=== PATIENT | male | born 1970 | race Caucasian/White ===

== ENCOUNTER 2021-07-04 08:59 | Day surgery (SDC) | payer MEDICARE ==
[2021-07-04] MEDS ORDERED: Decadron 4 MG INJ IV ONE (09:00)
[2021-07-04] MEDS ORDERED: Xylocaine 1% Vial 30 ML PF IJ ONE (09:00)
[2021-07-04] MEDS ORDERED: Versed 2 MG/2 ML Injection ONE (09:37)
[2021-07-04] MEDS ORDERED: Lactated Ringers 1,000 ML IV ONE (10:54)
[2021-07-04] MEDS ORDERED: DIPRIVAN 200 MG/20 ML IV ONE (11:08)
--- NOTE | 2021-07-04 12:44 | XRAY ---
Indication: Left C2-C4 MBB. Intraoperative fluoroscopy provided for 20 seconds. 2 digital spot images submitted for interpretation demonstrates posterior needle tips projecting over the expected left C2-C4 nerve roots. Correlate with intraoperative findings/report.
--- NOTE | 2021-07-04 12:46 | XRAY ---
20 seconds fluoroscopy time in surgery for left C2-C4 MBB.
== END 2021-07-04 11:49 | disposition home or self-care (01) ==
LOC: SDC-PAIN 08:59
PROVIDERS: ATTEND Psychiatry & Neurology Pain Medicine
DX: M47.812 Spondylosis without myelopathy or radiculopathy, cervical region (principal); I10 Essential (primary) hypertension; Z79.899 Other long term (current) drug therapy
CPT/HCPCS: 64490; 64491; 72040; 77002; J1100; J2001; J2250; J2704

== ENCOUNTER 2021-07-19 06:45 | Day surgery (SDC) | payer MEDICARE ==
[2021-07-19] MEDS ORDERED: Xylocaine 1% Vial 30 ML PF IJ ONE (06:46)
[2021-07-19] MEDS ORDERED: Versed 2 MG/2 ML Injection ONE (07:44)
[2021-07-19] MEDS ORDERED: DIPRIVAN 200 MG/20 ML IV ONE (08:43)
[2021-07-19] MEDS ORDERED: Lactated Ringers 1,000 ML IV ONE (09:01)
--- NOTE | 2021-07-19 10:10 | XRAY ---
Indication: Bilateral L4-S1 MBB. Intraoperative fluoroscopy provided for 21 seconds. Single digital spot image submitted for interpretation demonstrates posterior needle tips projecting over the expected left and right L4-S1 nerve roots. Correlate with intraoperative findings/report.
--- NOTE | 2021-07-19 11:25 | XRAY ---
21 seconds of fluoroscopy was used in surgery for a bilateral L4-S1 MBB.
== END 2021-07-19 08:52 | disposition home or self-care (01) ==
LOC: SDC-PAIN 06:45
PROVIDERS: ATTEND Psychiatry & Neurology Pain Medicine
DX: M47.816 Spondylosis without myelopathy or radiculopathy, lumbar region (principal); Z79.899 Other long term (current) drug therapy
CPT/HCPCS: 64493; 64494; 72020; 77002; J2001; J2250; J2704